=== PATIENT | female | born 1965 ===

== ENCOUNTER 2016-09-16 16:46 | Emergency (ER) | payer BC ==
[2016-09-16 16:52] VITALS: BMI 28.3
[2016-09-16 16:57] VITALS: BP 124/85; PULSE 91; RESP 15; TEMP 98.2; O2SAT 98
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
== END 2016-09-16 18:30 | disposition home or self-care (01) ==
LOC: ED 16:46
DX: T18.9XXA Foreign body of alimentary tract, part unspecified, initial encounter (principal); X58.XXXA Exposure to other specified factors, initial encounter

== ENCOUNTER 2017-05-27 07:13 | Emergency (ER) | payer BC ==
[2017-05-27] MEDS ORDERED: Sodium Chloride 0.9% 1,000 ML IV STA (07:26)
--- NOTE | 2017-05-27 07:31 | ED PDOC ---
Arrival/HPI - General Time Seen by Provider: 05/27/17 07:15 Historian: Patient, Other (friend) - History of Present Illness Narrative History of Present Illness (Text): you were treated in the ED today for upper abdomen pain which is going down and to the back with nausea but otherwise without any vomiting/new food/travel/ headache/dizziness/difficulty breathing/chest pain/abdomen pain/numbness/ tingling/loss of limb function/pain with urination. 05/27/17 07:28 Time/Duration: 24 hours Past Medical History - Provider Review Nursing Documentation Reviewed: Yes - Travel History Have you recently traveled outside [place] w/in the past 3 mons?: No - Past History Past History: No Previous - Tetanus Immunization Tetanus Immunization: Up to Date - Past Medical History Past Medical History: No Previous - Musculoskeletal/Rheumatological Hx Musculoskeletal Disorders: No - Gastrointestinal Hx Gastrointestinal Disorders: No - Genitourinary/Gynecological Hx Genitourinary Disorders: No - Psychiatric Hx Depression: No Hx Emotional Abuse: No Hx Physical Abuse: No Hx Substance Use: No - Past Surgical History Past Surgical History: No Previous - Surgical History Other/Comment: ectopic - Suicidal Assessment Feels Threatened In Home Enviroment: No Family/Social History - Physician Review Nursing Documentation Reviewed: Yes Family/Social History: No Known Family HX Smoking Status: Never Smoked Hx Alcohol Use: Yes Hx Substance Use: No Hx Substance Use Treatment: No Allergies/Home Meds Allergies/Adverse Reactions: Allergies No Known Allergies Allergy (Verified 09/16/16 16:52) Home Medications: Home Meds Medication Instructions Recorded Confirmed Ondansetron [Zofran Tab] 4 mg PO Q4 PRN 05/27/17 05/27/17 Pantoprazole [Protonix EC Tab] 40 mg PO DAILY 05/27/17 05/27/17 Review of Systems - Review of Systems Constitutional: Normal Eyes: Normal ENT: Normal Respiratory: Normal Cardiovascular: Normal Gastrointestinal: Abdominal Pain, Nausea Genitourinary Female: Normal Musculoskeletal: Normal Skin: Normal Neurological: Normal Endocrine: Normal Hemo/Lymphatic: Normal Psychiatric: Normal Physical Exam Vital Signs Reviewed: Yes Vital Signs Temp Pulse Resp BP Pulse Ox 05/27/17 07:14 98.7 F 90 16 133/79 99 Appearance: Positive for: Well-Appearing, Non-Toxic, Comfortable Pain Distress: None Mental Status: Positive for: Alert and Oriented X 3 - Systems Exam Head: Present: Atraumatic, Normocephalic Pupils: Present: PERRL Extroacular Muscles: Present: EOMI Conjunctiva: Present: Normal Mouth: Present: Moist Mucous Membranes Pharnyx: Present: Normal Nose (External): Present: Atraumatic Nose (Internal): Present: Normal Inspection Neck: Present: Normal Range of Motion Respiratory/Chest: Present: Clear to Auscultation, Good Air Exchange Cardiovascular: Present: Regular Rate and Rhythm Abdomen: Present: Tenderness, Other (mild mert-umbilical discomfort but no other abdomen tenderness.) Back: Present: Normal Inspection Upper Extremity: Present: Normal Inspection Lower Extremity: Present: Normal Inspection Neurological: Present: GCS=15, CN II-XII Intact, Speech Normal, Motor Func Grossly Intact Skin: Present: Warm, Normal Color Psychiatric: Present: Alert, Oriented x 3, Normal Insight, Normal Concentration Medical Decision Making ED Course and Treatment: you were treated in the ED today for upper abdomen pain which is going down and to the back with nausea but otherwise without any vomiting/new food/travel/ headache/dizziness/difficulty breathing/chest pain/abdomen pain/numbness/ tingling/loss of limb function/pain with urination. You were otherwise breathing easily, pink moist lips, smiling and talking with your friend, good strength/sensation, alert/oriented, walking easily, clear lungs, mild abdomen tenderness at the belly button, no fever temp 98.7, stable heart rate 90, stable breathing rate 16, excellent oxygen level 99% room air, elevated blood pressure 133/79 which we recommend repeat in 2-3 days primary care office to determine further treatment, ECG normal sinus rhythm, intravenous fluids, protonix, zofran, observation done in the ED. Signed out to Dr. Younger to fu labs, ecg and disposition. 05/27/17 08:05 - Lab Interpretations Lab Results: 05/27/17 07:50 Lab Results 05/27/17 07:50: WBC 7.1, RBC 4.56, Hgb 13.7, Hct 39.8, MCV 87.3, MCH 30.0, MCHC 34.4, RDW 13.2, Plt Count 197, MPV 10.3, Gran % 64.3, Lymph % (Auto) 28.4, [place] % (Auto) 6.1 H, Eos % (Auto) 1.1 L, Baso % (Auto) 0.1, Gran # 4.55, Lymph # ( Auto) 2.0, [place] # (Auto) 0.4, Eos # (Auto) 0.1, Baso # (Auto) 0.01 - EKG Interpretation Interpreted by ED Physician: Yes (NSR, flipped t waves avr, v1, v2.) Type: 12 lead EKG - Medication Orders Current Medication Orders: Sodium Chloride (Sodium Chloride 0.9%) 1,000 mls @ 1,000 mls/hr IV .Q1H STA Stop: 05/27/17 08:25 Last Admin: 05/27/17 07:48 Dose: 1,000 mls/hr eMAR Start Stop Document 05/27/17 07:48 SRE (Rec: 05/27/17 07:51 SRE [id number]) Intravenous Solution Start Date 05/27/17 Start Time 07:49 End Date 05/27/17 End time 08:50 Total Infusion Time 61 Discontinued Medications Ondansetron HCl (Zofran Inj) 4 mg IVP STAT STA Stop: 05/27/17 07:27 Last Admin: 05/27/17 07:51 Dose: 4 mg IVP Administration Document 05/27/17 07:51 SRE (Rec: 05/27/17 07:51 SRE [id number]) Charges for Administration # of IVP Administrations 1 Pantoprazole Sodium (Protonix Inj) 40 mg IVP STAT STA Stop: 05/27/17 07:27 Last Admin: 05/27/17 07:51 Dose: 40 mg IVP Administration Document 05/27/17 07:51 SRE (Rec: 05/27/17 07:51 SRE [id number]) Charges for Administration # of IVP Administrations 1 Disposition/Present on Arrival - Present on Arrival History of DVT/PE: No History of Uncontrolled Diabetes: No Urinary Catheter: No History Surgical Site Infection Following: None - Disposition
[2017-05-27 07:38] VITALS: BMI 26.2
[2017-05-27 08:00] LABS: BASO # 0.01 K/mm3 (0.0-2.0); BASO % 0.1 % (0.0-3.0); EOS # 0.1 (0.0-0.7); EOS % 1.1 % (1.5-5.0); GRAN # 4.55 (1.4-6.5); GRAN % 64.3 % (50.0-68.0); HEMOGLOBIN 13.7 g/dL (12.0-16.0); LYMPH % 28.4 % (22.0-35.0); MEAN CELL VOLUME 87.3 fl (80.0-105.0); MEAN CORPUSCULAR HGB CONC 34.4 g/dl (31.0-37.0); MEAN PLATELET VOLUME 10.3 fl (7.0-11.0); MONO # 0.4 (0.1-0.6); MONO % 6.1 % (1.0-6.0); RBC 4.56 10^6/uL (3.5-6.1); RED CELL DISTRIBUTION WIDTH 13.2 % (11.5-14.5); WHITE BLOOD COUNT 7.1 10^3/ul (4.5-11.0)
[2017-05-27 08:09] LABS: URINE BILIRUBIN NEGATIVE (NEGATIVE); URINE BLOOD SMALL (NEGATIVE); URINE GLUCOSE (UA) NEGATIVE (NEGATIVE); URINE LEUKOCYTE ESTERASE NEGATIVE Leu/uL (NEGATIVE); URINE PROTEIN TRACE mg/dL (<30 mg/dL); URINE UROBILINOGEN 0.2 E.U./dL (<1 E.U./dL)
[2017-05-27 08:10] LABS: URINE APPEARANCE SLIGHT-CLOUDY (CLEAR); URINE COLOR DARK YELLOW (YELLOW)
[2017-05-27 08:11] LABS: ALB/GLOB RATIO 1.4 (1.1-1.8); ALBUMIN 4.4 g/dL (3.0-4.8); ALT/SGPT 50 U/L (7-56); AST/SGOT 35 U/L (14-36); BLOOD UREA NITROGEN 17 mg/dL (7-21); CALCIUM 9.1 mg/dL (8.4-10.5); GFR AFRICAN-AMERICAN > 60; GFR NON-AFRICAN AMERICAN > 60; LIPASE 144 U/L (23-300)
[2017-05-27 08:12] LABS: INR 0.98 (0.93-1.08); PARTIAL THROMBOPLASTIN TIME 27.4 Seconds (25.1-36.5); PROTHROMBIN TIME 11.3 SECONDS (9.4-12.5)
[2017-05-27 08:18] LABS: URINE RBC 0 - 2 /hpf (0-2); URINE WBC 0 - 2 /hpf (0-6)
[2017-05-27 08:19] LABS: URINE HYALINE CAST 0 - 2 /hpf
--- NOTE | 2017-05-27 08:20 | ED PDOC ---
Physical Exam Vital Signs Reviewed: Yes Vital Signs Temp Pulse Resp BP Pulse Ox 05/27/17 09:40 77 18 123/74 96 05/27/17 07:14 98.7 F 90 16 133/79 99 Temperature: Afebrile Blood Pressure: Normal Pulse: Regular Respiratory Rate: Normal Appearance: Positive for: Well-Appearing, Non-Toxic, Comfortable Pain Distress: None Mental Status: Positive for: Alert and Oriented X 3 - Systems Exam Head: Present: Atraumatic, Normocephalic Pupils: Present: PERRL Extroacular Muscles: Present: EOMI Conjunctiva: Present: Normal Mouth: Present: Moist Mucous Membranes Neck: Present: Normal Range of Motion Respiratory/Chest: Present: Clear to Auscultation, Good Air Exchange. No: Respiratory Distress, Accessory Muscle Use Cardiovascular: Present: Regular Rate and Rhythm, Normal S1, S2. No: Murmurs Abdomen: Present: Normal Bowel Sounds, Other (serial bowel exams wnl , s/p analgesics feel s better. ). No: Tenderness, Distention, Peritoneal Signs Back: Present: Normal Inspection Upper Extremity: Present: Normal Inspection. No: Cyanosis, Edema Lower Extremity: Present: Normal Inspection. No: Edema Neurological: Present: GCS=15, CN II-XII Intact, Speech Normal, Motor Func Grossly Intact, Normal Sensory Function, Normal Cerebellar Funct, Norm Deep Tendon Reflexes, Memory Normal, Normal 2Pt Descrimination Skin: Present: Warm, Dry, Normal Color. No: Rashes Psychiatric: Present: Alert, Oriented x 3, Normal Insight, Normal Concentration Medical Decision Making ED Course and Treatment: 05/27/17 08:20 Case signed out to me by Dr. Nguyen. Pending labs, reevaluation and final disposition. 05/27/17 10:53 Abdomen Xray Creator : Murtaza Cordero MD FINDINGS: BOWEL: Normal. No obstruction. No free air. BONES: Normal. OTHER FINDINGS: None. IMPRESSION: No active disease. 05/27/17 11:23 sreial abdominal exams benign , feeling better s/p analgesics, diet /lifestyle counse;ld, advised Gi f/u . 05/27/17 11:25 - Lab Interpretations Lab Results: 05/27/17 07:50 05/27/17 07:50 Lab Results 05/27/17 07:50: Sodium 141, Potassium 3.7, Chloride 106, Carbon Dioxide 22, Anion Gap 17, BUN 17, Creatinine 0.8, Est GFR ( Amer) > 60, Est GFR (Non- Af Amer) > 60, Random Glucose 126 H, Calcium 9.1, Total Bilirubin 2.3 H, AST 35 , ALT 50, Alkaline Phosphatase 84, Troponin I 0.01, Total Protein 7.6, Albumin 4.4, Globulin 3.2, Albumin/Globulin Ratio 1.4, Lipase 144 05/27/17 07:50: Urine Color Dark yellow, Urine Appearance Slight-cloudy, Urine pH 6.0, Ur Specific [place] 1.025, Urine Protein Trace H, Urine Glucose (UA) Negative, Urine Ketones Negative, Urine Blood Small H, Urine Nitrate Negative, Urine Bilirubin Negative, Urine Urobilinogen 0.2, Ur Leukocyte Esterase Negative , Urine RBC 0 - 2, Urine WBC 0 - 2, Ur Epithelial Cells 1 - 3, Hyaline Casts 0 - 2 05/27/17 07:50: PT 11.3, INR 0.98, APTT 27.4 05/27/17 07:50: WBC 7.1, RBC 4.56, Hgb 13.7, Hct 39.8, MCV 87.3, MCH 30.0, MCHC 34.4, RDW 13.2, Plt Count 197, MPV 10.3, Gran % 64.3, Lymph % (Auto) 28.4, [place] % (Auto) 6.1 H, Eos % (Auto) 1.1 L, Baso % (Auto) 0.1, Gran # 4.55, Lymph # ( Auto) 2.0, [place] # (Auto) 0.4, Eos # (Auto) 0.1, Baso # (Auto) 0.01 I have reviewed the lab results: Yes - RAD Interpretation Radiology Orders: 05/27/17 08:43 ABD 2 VIEWS (FLAT/UP OR DECUB) [RAD] Stat - Medication Orders Current Medication Orders: Discontinued Medications Al Hydrox/Mg Hydrox/Simethicone (Maalox Plus 30 Ml) 30 ml PO STAT STA Stop: 05/27/17 08:43 Last Admin: 05/27/17 09:01 Dose: 30 ml Sodium Chloride (Sodium Chloride 0.9%) 1,000 mls @ 1,000 mls/hr IV .Q1H STA Stop: 05/27/17 08:25 Last Admin: 05/27/17 07:48 Dose: 1,000 mls/hr eMAR Start Stop Document 05/27/17 07:48 SRE (Rec: 05/27/17 07:51 SRE [id number]) Intravenous Solution Start Date 05/27/17 Start Time 07:49 End Date 05/27/17 End time 08:50 Total Infusion Time 61 Metoclopramide HCl (Reglan) 10 mg IVP STAT STA Stop: 05/27/17 08:43 Last Admin: 05/27/17 09:00 Dose: 10 mg IVP Administration Document 05/27/17 09:00 SRE (Rec: 05/27/17 09:00 SRE [id number]) Charges for Administration # of IVP Administrations 1 Morphine Sulfate (Morphine) 2 mg IVP STAT STA Stop: 05/27/17 08:47 Last Admin: 05/27/17 09:00 Dose: 2 mg MAR Pain Assessment Document 05/27/17 09:00 SRE (Rec: 05/27/17 09:00 SRE [id number]) Pain Reassessment Is this a pain reassessment? Yes Sleep Is patient sleeping during reassessment? No Presence of Pain Presence of Pain Yes Pain Scale Used Pain Scale Used Numeric Location Pain Location Body Site Abdomen Description Description Sharp IVP Administration Document 05/27/17 09:00 SRE (Rec: 05/27/17 09:00 SRE [id number]) Charges for Administration # of IVP Administrations 1 Ondansetron HCl (Zofran Inj) 4 mg IVP STAT STA Stop: 05/27/17 07:27 Last Admin: 05/27/17 07:51 Dose: 4 mg IVP Administration Document 05/27/17 07:51 SRE (Rec: 05/27/17 07:51 SRE [id number]) Charges for Administration # of IVP Administrations 1 Pantoprazole Sodium (Protonix Inj) 40 mg IVP STAT STA Stop: 05/27/17 07:27 Last Admin: 05/27/17 07:51 Dose: 40 mg IVP Administration Document 05/27/17 07:51 SRE (Rec: 05/27/17 07:51 SRE [id number]) Charges for Administration # of IVP Administrations 1 - Scribe Statement The provider has reviewed the documentation as recorded by the Scribe Belqes Mallika Provider Reyna Attestation: All medical record entries made by the Lawrenceibshara were at my direction and personally dictated by me. I have reviewed the chart and agree that the record accurately reflects my personal performance of the history, physical exam, medical decision making, and the department course for this patient. I have also personally directed, reviewed, and agree with the discharge instructions and disposition. Disposition/Present on Arrival - Present on Arrival Any Indicators Present on Arrival: No History of DVT/PE: No History of Uncontrolled Diabetes: No Urinary Catheter: No History of Decub. Ulcer: No History Surgical Site Infection Following: None - Disposition Have Diagnosis and Disposition been Completed?: Yes Diagnosis: Gastritis, Abdominal gas pain Disposition: HOME/ ROUTINE Disposition Time: 11:28 Patient Plan: Discharge Condition: IMPROVED Discharge Instructions (ExitCare): Gastritis, Gas and Bloating Print Language: [place] Additional Instructions: Avoid meaty , greasy foods, spoicy foods, coffee, alcoholic beverages, large meals in general which all exacerbate this condition. Over the next few days eat an exaggeratedly simple diet such as brothy soups, plenty of water, bananas, crackers, herbal teas such as krzysztof/peppermint . Prescriptions: Dicyclomine [Bentyl] 20 mg PO Q8 PRN #20 tab PRN Reason: Irritable Bowel Symptoms Famotidine [Pepcid] 20 mg PO BID PRN #40 tab PRN Reason: Dyspepsia Referrals: Daniela HILL,Alfonso Herrera MD [Primary Care Provider] - Follow up with primary Forms: [employer] (Faroese)
[2017-05-27 08:23] LABS: TROPONIN I 0.01 ng/mL
[2017-05-27] MEDS ORDERED: Morphine 2 mg/ml ISec IVP STA (08:40)
[2017-05-27] MEDS ORDERED: Alum-Mag Hydrox-Simethicone Susp (30 mL) PO STA (08:42)
[2017-05-27 09:44] VITALS: O2SAT 96
--- NOTE | 2017-05-27 10:51 | RAD ---
HISTORY: examine gas pattern COMPARISON: No prior. FINDINGS: BOWEL: Normal. No obstruction. No free air. BONES: Normal. OTHER FINDINGS: None. IMPRESSION: No active disease.
[2017-05-27 11:41] VITALS: BP 126/76; PULSE 75; RESP 16; TEMP 98.2
--- NOTE | 2017-05-28 08:44 | CARD ---
APPROVED REPORT EKG Measurement Heart Ganz57EVIN ID [id number] <Conclusion> Normal sinus rhythm RVCD Normal ECG
== END 2017-05-27 11:42 | disposition home or self-care (01) ==
LOC: ED 07:13
DX: K29.70 Gastritis, unspecified, without bleeding (principal); R14.1 Gas pain
CPT/HCPCS: 74019; 80053; 81001; 83690; 84484; 85025; 85610; 85730; 87086; 93005; 96361; 96374; 96375; 99284; C9113; J2270; J2405; J2765; J7040